=== PATIENT | female | born 1985 | race Caucasian/White ===

== ENCOUNTER 2017-03-25 18:13 | Emergency (ER) | payer MEDICAID ==
[~2017-03-25] VITALS: Ht 167.6 cm; Wt 79.4 kg
[2017-03-25 19:44] VITALS: BP 160/90
--- NOTE | 2017-03-25 20:00 | NUR ---
PATIENT LEFT WITHOUT BEING SEEN BY DR. LUA. NO FURTHER CARE PROVIDED FOR PATIENT.
--- NOTE | 2017-03-25 22:06 | NUR ---
Miranda elena in [facility] - 03/25/17 at 2209 by MEDRJJ PATIENT LEFT WITHOUT BEING SEEN BY DR. LUA. NO FURTHER CARE PROVIDED FOR PATIENT.
== END 2017-03-25 20:00 | disposition left against medical advice (07) ==
LOC: MED 18:13
DX: R06.02 Shortness of breath (principal); Z53.21 Procedure and treatment not carried out due to patient leaving prior to being seen by health care provider

== ENCOUNTER 2020-08-31 12:32 | Emergency (ER) | payer OTHER ==
[~2020-08-31] VITALS: Ht 165.1 cm; Wt 77.1 kg
[2020-08-31 12:39] VITALS: BP 186/116
[2020-08-31] MEDS ORDERED: KETOROLAC 30 MG/ML VIAL IM ONE (13:10)
[2020-08-31] MEDS ORDERED: ACET-10509 PO (13:33)
[2020-08-31 13:45] VITALS: BP 186/116
== END 2020-08-31 13:46 | disposition home or self-care (01) ==
LOC: MED 12:32
DX: S40.012A Contusion of left shoulder, initial encounter (principal); I11.9 Hypertensive heart disease without heart failure; F17.210 Nicotine dependence, cigarettes, uncomplicated; V98.8XXA Other specified transport accidents, initial encounter; Y93.89 Activity, other specified; Y92.89 Other specified places as the place of occurrence of the external cause; Y99.8 Other external cause status
CPT/HCPCS: 73000; 73020; 96372; 99284; J1885

== ENCOUNTER 2021-08-19 16:27 | Emergency (ER) | payer OTHER ==
[~2021-08-19] VITALS: Ht 172.7 cm; Wt 80.3 kg
[~2021-08-19 16:27] MED LIST: ACET-10509 PO
[2021-08-19 16:29] VITALS: BP 185/125
--- NOTE | 2021-08-19 16:33 | NUR ---
35 y/o F BIBA from home c/o epigastric pain x 1 day. Patient A&Ox4 states taking [place] yestreday without relief to symptoms. Epigastric pain 10/10, sharp/constant, non-radiating. Diffuse tenderness to abdomen. States nausea; denies vomiting, fever, chills, dysuria. 20G Left AC with Zofran 4mg IVP given by EMS. BP 179/130. PMH: COPD, HF, DM, pancreatitis Meds: amlodipine, albuterol, ASA 81, omperazole, zoloft, zofran, ativan, carvedilol, clonidine, insulin, lisinopril NKDA
--- NOTE | 2021-08-19 16:33 | NUR ---
BIBA to bed 09
--- NOTE | 2021-08-19 16:39 | NUR ---
Dr. Palomo is evaluating pt at bedside
[2021-08-19] MEDS ORDERED: MORPHINE SULFATE 10 MG/ML VIAL IVP ONE (16:40)
--- NOTE | 2021-08-19 16:48 | NUR ---
Patient refusing Morphine states "I can't take that I'm gonna throw up." Dr. Palomo made aware
[2021-08-19] MEDS ORDERED: diphenhydrAMINE 50 MG/ML VIAL IVP ONE (16:50)
[2021-08-19] MEDS ORDERED: METOCLOPRAMIDE 10 MG/2 ML INJ VIAL IVP ONE (16:50)
--- NOTE | 2021-08-19 16:57 | NUR ---
Lab at bedside
[2021-08-19 17:02] LABS: BASOPHILS # (AUTO) 0.1 K/uL (0.00-0.22); BASOPHILS % (AUTO) 0.6 % (0.0-2.0); EOSINOPHILS # (AUTO) 0.2 K/uL (0-0.4); EOSINOPHILS % (AUTO) 1.8 % (0.0-4.0); HEMATOCRIT 36.6 % (36-48); HEMOGLOBIN 11.6 g/dL (12.0-16.0); LYMPHOCYTES # (AUTO) 2.3 K/uL (2.5-16.5); LYMPHOCYTES % (AUTO) 18.9 % (20.5-51.1); MEAN CORPUSCULAR HEMOGLOBIN 23 pg (27-31); MEAN CORPUSCULAR HGB CONC 32 g/dL (33-37); MEAN CORPUSCULAR VOLUME 72.7 fL (80-94); MONOCYTES # (AUTO) 0.5 K/uL (0.8-1.0); NEUTROPHILS % (AUTO) 74.7 % (42.2-75.2); PLATELET COUNT (AUTO) 403 K/uL (140-450); RED BLOOD CELL COUNT(AUTO) 5.04 MIL/uL (4.20-5.40); RED CELL DISTRIBUTION WIDTH 16.5 % (11.6-13.7)
--- NOTE | 2021-08-19 17:03 | NUR ---
BP 179/130. Dr. Palomo made aware
[2021-08-19 17:22] LABS: ALBUMIN 3.2 g/dL (3.4-5.0); ANION GAP 9.3 (8-16); CREATININE 0.7 mg/dL (0.6-1.3); POTASSIUM 4.3 mmol/L (3.5-5.1); TOTAL BILIRUBIN 1.4 mg/dL (0.0-1.0)
--- NOTE | 2021-08-19 17:58 | NUR ---
SpO2 84%; pt states home O2 as needed 2-4L via NC, baseline 86-88% on room air. Pt placed onto 2L via NC at this time.
--- NOTE | 2021-08-19 17:58 | NUR ---
Patient c/o increased pain and mother reports she takes prescribed Dilaudid and [place] 5mg. Patient OK for Dilaudid at this time. Dr. Palomo made aware.
[2021-08-19] MEDS ORDERED: HYDROmorphone PFS 2 MG/ML SYR IVP ONE (18:00)
--- NOTE | 2021-08-19 18:21 | NUR ---
US tech at bedside
--- NOTE | 2021-08-19 18:28 | NUR ---
Patient asleep in semi-fowlers position. Emesis bag given to mother at bedside.
--- NOTE | 2021-08-19 18:55 | NUR ---
Unable to provide urine sample at this time
--- NOTE | 2021-08-19 19:15 | NUR ---
Report and transfer of care given to RAMOS Ramírez.
--- NOTE | 2021-08-19 20:05 | NUR ---
provided pt urine cup. pt unable to urinate at this time. pt is sleeping. unable to arouse. mother at bedside. pt heart monitor on
--- NOTE | 2021-08-19 20:28 | NUR ---
pt appears to be sleeping. equal rise and fall of chest wall. all needs met at this time. mom at bedside. bed locked in lowest position, side rails x2 for safety.
--- NOTE | 2021-08-19 21:18 | NUR ---
ermd at bedside.
--- NOTE | 2021-08-19 21:47 | NUR ---
pt ambulated to with steady gait for urine collection.
--- NOTE | 2021-08-19 21:48 | NUR ---
pt ambulated back to bed.
--- NOTE | 2021-08-19 22:00 | NUR ---
po challenge passed. alexey yanes made aware.
[2021-08-19] MEDS ORDERED: METO-486 PO (22:18)
[2021-08-19] MEDS ORDERED: ONDA-188 SL (22:19)
[2021-08-19] MEDS ORDERED: DIPH25TA53 PO (22:19)
[2021-08-19 22:35] VITALS: BP 135/86
--- NOTE | 2021-08-19 22:35 | NUR ---
Patient discharged with v/s stable. Written and verbal after care instructions given and explained. Patient alert, oriented and verbalized understanding of instructions. Ambulatory with by parent. All questions addressed prior to discharge. ID band removed. Patient advised to follow up with PMD. Rx of zofran, reglan,and benadryl given. Patient educated on indication of medication including possible reaction and side effects. Opportunity to ask questions provided and answered.
[2021-08-19 23:59] LABS: APPEARANCE,URINE CLEAR (CLEAR); BILIRUBIN,URINE NEGATIVE (NEGATIVE); BLOOD, URINE NEGATIVE (NEGATIVE); COLOR,URINE YELLOW (YELLOW); LEUKOCYTE ESTERASE ,URINE NEGATIVE (NEGATIVE); NITRITE, URINE NEGATIVE (NEGATIVE); PH,URINE 5.5 (5.0-9.0); UGLUCOSE TRACE (NEGATIVE)
[2021-08-20 00:28] LABS: RBC,URINE 0-5 /HPF (0-5); WBC,URINE 0-5 /HPF (0-5)
[2021-08-21] MEDS ORDERED: LIP80 PO (00:33)
[2021-08-21] MEDS ORDERED: SERT50TA PO (02:37)
[2021-08-21] MEDS ORDERED: NITR0.4T2 SL (02:37)
[2021-08-21] MEDS ORDERED: HYDR2TAB6 PO (02:37)
[2021-08-21] MEDS ORDERED: HYDR-5080 PO (02:37)
[2021-08-21] MEDS ORDERED: LISI-486 PO (02:37)
[2021-08-21] MEDS ORDERED: SPIR50TA PO (02:37)
[2021-08-21] MEDS ORDERED: ASPI-1822 PO (02:37)
[2021-08-21] MEDS ORDERED: CETI10SG1 PO (02:37)
[2021-08-21] MEDS ORDERED: CARV25TA PO (02:37)
[2021-08-21] MEDS ORDERED: CLON0.1T16 PO (02:37)
[2021-08-21] MEDS ORDERED: AMLO10TA89 PO (02:37)
[2021-08-21] MEDS ORDERED: HUM SUBQ (02:37)
[2021-08-21] MEDS ORDERED: INSU100I7 SQ (02:37)
[2021-08-21] MEDS ORDERED: OMEP40EC23 PO (02:37)
[2021-08-23] MEDS ORDERED: METO50TE2 PO (14:20)
[2021-08-23] MEDS ORDERED: FURO-570 PO (14:20)
== END 2021-08-19 22:36 | disposition home or self-care (01) ==
LOC: MED 16:27
DX: R10.13 Epigastric pain (principal); I11.0 Hypertensive heart disease with heart failure; I50.9 Heart failure, unspecified; J44.9 Chronic obstructive pulmonary disease, unspecified; E11.9 Type 2 diabetes mellitus without complications; F17.210 Nicotine dependence, cigarettes, uncomplicated; Z98.890 Other specified postprocedural states; Z71.6 Tobacco abuse counseling; Z79.899 Other long term (current) drug therapy
CPT/HCPCS: 36415; 76705; 80053; 81001; 81025; 83690; 84703; 85025; 96374; 96375; 99285; J1170; J1200; J2765; Q0092; J2270